=== PATIENT | female | born 1965 | race Caucasian/White ===

== ENCOUNTER 2018-02-05 10:51 | Inpatient (IN) | payer BC ==
[2018-02-05] MEDS: SOD CHLORIDE 0.9% 1,000 ML IV (11:34)
[2018-02-05] MEDS: ONDANSETRON 4 MG INJ IV ×2 (11:35→12:15)
[2018-02-05] MEDS: HYDROmorphONE 0.5 MG/0.5 ML SYG IV ×5 (11:35→23:55)
[2018-02-05 12:07] LABS: ADD MAN DIFF? NO
[2018-02-05 12:12] LABS: WHITE BLOOD COUNT 6.6 10^3/ul (4.8-10.8)
[2018-02-05 12:12] LABS: ABNORMAL IP MESSAGE 1; BASOPHILS % 0.3 % (0.0-2.0); EOSINOPHILS # 0.1 10^3/ul (0.0-0.5); EOSINOPHILS % 1.5 % (0.0-7.0); HEMATOCRIT 41.3 % (37.0-47.0); HEMOGLOBIN 14.3 g/dl (12.0-16.0); LYMPHOCYTES # 1.5 10^3/ul (0.8-2.9); LYMPHOCYTES % 23.3 % (15.0-51.0); MEAN CORPUSCULAR HEMOGLOBIN 30.1 pg (29.0-33.0); MEAN CORPUSCULAR HGB CONC 34.6 g/dl (32.0-37.0); MEAN CORPUSCULAR VOLUME 86.9 fl (82.0-101.0); MEAN PLATELET VOLUME 10.6 fl (7.4-10.4); MONOCYTE # 0.5 10^3/ul (0.3-0.9); MONOCYTES % 7.8 % (0.0-11.0); NEUTROPHIL # 4.4 10^3/ul (1.6-7.5); NEUTROPHILS % 66.8 % (39.0-77.0); PLATELET COUNT 65 10^3/UL (140-415); RED BLOOD COUNT 4.75 10^6/ul (4.20-5.40); RED CELL DISTRIBUTION WIDTH 14.3 % (11.5-14.5)
[2018-02-05 12:17] LABS: POSITIVE DIFF @See below
[2018-02-05 12:30] LABS: PROTIME 14.4 Sec (11.9-14.9); PT RATIO 1.1
[2018-02-05 12:37] LABS: ALANINE AMINOTRANSFERASE 87 IU/L (13-69); ALBUMIN 4.2 g/dl (3.3-4.9); ALBUMIN/GLOBULIN RATIO 1.35; ALKALINE PHOSPHATASE 87 IU/L (42-121); ANION GAP 16 (8-16); ASPARTATE AMINO TRANSFERASE 75 IU/L (15-46); BILIRUBIN,INDIRECT 0.4 mg/dl (0-1.1); BILIRUBIN,TOTAL 0.4 mg/dl (0.2-1.3); BLOOD UREA NITROGEN 9 mg/dl (7-20); CALCIUM 9.4 mg/dl (8.4-10.2); CARBON DIOXIDE 30 mmol/L (21-31); CHLORIDE 104 mmol/L (97-110); CREATININE 0.49 mg/dl (0.44-1.00); GLUCOSE 101 mg/dl (70-220); POTASSIUM 4.2 mmol/L (3.5-5.1); SODIUM 146 mmol/L (135-144); TOTAL PROTEIN 7.3 g/dl (6.1-8.1)
[2018-02-05] MEDS: predniSONE 20 MG TAB PO (13:30)
[2018-02-05] MEDS: DEXTROSE 5%-0.45% NACL 1,000 ML IV (17:20)
[2018-02-05] MEDS ORDERED: HYDROCODONE/APAP (5/325) TAB PO (17:30)
[2018-02-05] MEDS: MYCOPHENOLATE 250 MG CAP PO (21:00)
[2018-02-05] MEDS ORDERED: VITAMIN A & D 5 GM OINT PACKET TOP (21:45)
[2018-02-06] MEDS: HYDROmorphONE 0.5 MG/0.5 ML SYG IV ×4 (04:11→22:06)
[2018-02-06 05:37] LABS: ADD MAN DIFF? NO
[2018-02-06 05:40] LABS: RETICULOCYTE COUNT # 0.128 X10^6 (0.020-0.110); RETICULOCYTE COUNT % 2.9 % (0.5-1.5)
[2018-02-06 05:40] LABS: RETICULOCYTE RBC 4.37
[2018-02-06] MEDS: PANTOPRAZOLE 40 MG INJ IVPB (05:41)
[2018-02-06 05:42] LABS: ABNORMAL IP MESSAGE 1; BASOPHIL # 0.1 10^3/ul (0.0-0.1); BASOPHILS % 0.5 % (0.0-2.0); EOSINOPHILS # 0.2 10^3/ul (0.0-0.5); EOSINOPHILS % 1.2 % (0.0-7.0); HEMATOCRIT 38.6 % (37.0-47.0); HEMOGLOBIN 13.4 g/dl (12.0-16.0); LYMPHOCYTES # 3.7 10^3/ul (0.8-2.9); LYMPHOCYTES % 30.6 % (15.0-51.0); MEAN CORPUSCULAR HEMOGLOBIN 30.6 pg (29.0-33.0); MEAN CORPUSCULAR HGB CONC 34.7 g/dl (32.0-37.0); MEAN CORPUSCULAR VOLUME 88.1 fl (82.0-101.0); MEAN PLATELET VOLUME 10.4 fl (7.4-10.4); MONOCYTES % 8.6 % (0.0-11.0); NEUTROPHIL # 7.1 10^3/ul (1.6-7.5); NEUTROPHILS % 58.8 % (39.0-77.0); PLATELET COUNT 96 10^3/UL (140-415); RED BLOOD COUNT 4.38 10^6/ul (4.20-5.40); RED CELL DISTRIBUTION WIDTH 14.7 % (11.5-14.5)
[2018-02-06 05:42] LABS: WHITE BLOOD COUNT 12.1 10^3/ul (4.8-10.8)
[2018-02-06 05:43] LABS: POSITIVE DIFF @See below
[2018-02-06 06:01] LABS: ALANINE AMINOTRANSFERASE 81 IU/L (13-69); ALBUMIN 3.9 g/dl (3.3-4.9); ALBUMIN/GLOBULIN RATIO 1.39; ALKALINE PHOSPHATASE 82 IU/L (42-121); ANION GAP 15 (8-16); ASPARTATE AMINO TRANSFERASE 75 IU/L (15-46); BILIRUBIN,INDIRECT 0.8 mg/dl (0-1.1); BILIRUBIN,TOTAL 0.8 mg/dl (0.2-1.3); BLOOD UREA NITROGEN 10 mg/dl (7-20); CALCIUM 8.8 mg/dl (8.4-10.2); CARBON DIOXIDE 29 mmol/L (21-31); CHLORIDE 104 mmol/L (97-110); CREATININE 0.62 mg/dl (0.44-1.00); GLUCOSE 100 mg/dl (70-220); POTASSIUM 3.9 mmol/L (3.5-5.1); SODIUM 144 mmol/L (135-144); TOTAL PROTEIN 6.7 g/dl (6.1-8.1)
[2018-02-06 06:09] LABS: URIC ACID 5.4 mg/dl (3.1-7.9)
[2018-02-06 06:09] LABS: IRON 104 ug/dl (35-150)
[2018-02-06 06:18] LABS: % IRON SATURATION 26 % SAT (22-52); TOTAL IRON BINDING CAPACITY 400 ug/dl (241-421)
[2018-02-06] MEDS ORDERED: CEFAZOLIN 1 GM INJ (07:00)
[2018-02-06] MEDS ORDERED: ACETAMINOPHEN 1000 MG/100 ML IVPB (07:00)
[2018-02-06] MEDS ORDERED: ROCURONIUM 50 MG INJ (07:00)
[2018-02-06 08:10] LABS: ERYTHROCYTE SEDIMENTATION RATE 12 mm/Hr (0-30)
[2018-02-06] MEDS: ACETAMINOPHEN 325 MG TAB PO (08:11)
[2018-02-06] MEDS: MYCOPHENOLATE 250 MG CAP PO ×2 (09:00→21:05)
[2018-02-06] MEDS: predniSONE 5 MG TAB PO ×2 (09:00→19:33)
[2018-02-06] MEDS ORDERED: PROPOFOL 20 ML (12:31)
[2018-02-06] MEDS ORDERED: FENTAnyl 50 MCG/ML VIAL (12:32)
[2018-02-06] MEDS ORDERED: MIDAZOLAM 1 MG/ML 2 ML INJ (12:33)
[2018-02-06] MEDS: DEXTROSE 5%-0.45% NACL 1,000 ML IV (13:30)
[2018-02-06] MEDS ORDERED: LIDOCAINE 2% (SDV) 5 ML INJ (14:26)
[2018-02-06] MEDS ORDERED: ONDANSETRON 4 MG INJ (16:09)
[2018-02-06] MEDS ORDERED: SUCCINYLCHOLINE CHLORIDE 100 MG/5 ML SYG IV (16:09)
[2018-02-06] MEDS ORDERED: METOCLOPRAMIDE 10 MG INJ (16:10)
[2018-02-06] MEDS ORDERED: HYDROmorphONE 2 MG/ML SYG (16:33)
[2018-02-06] MEDS ORDERED: FENTAnyl 50 MCG/ML VIAL IV ×2 (17:00)
[2018-02-06] MEDS ORDERED: IPRATROPIUM (NEB) 0.5 MG/2.5 ML AMP HHN (17:00)
[2018-02-06] MEDS ORDERED: ONDANSETRON 4 MG INJ IV (17:00)
[2018-02-06] MEDS ORDERED: LABETALOL HCL 20MG INJ IV (17:00)
[2018-02-06] MEDS ORDERED: MEPERIDINE 25 MG INJ IV (17:00)
[2018-02-06] MEDS ORDERED: HYDROmorphONE (0.2 MG/ML) 10ML SYG IV ×3 (17:00)
[2018-02-06] MEDS ORDERED: METOCLOPRAMIDE 10 MG INJ IV (17:00)
[2018-02-06] MEDS ORDERED: hydrALAzine 20 MG INJ IV (17:00)
[2018-02-06] MEDS ORDERED: DIPHENHYDRAMINE 50 MG INJ IV (17:00)
[2018-02-06 17:59] LABS: HEMATOCRIT 36.2 % (37.0-47.0); HEMOGLOBIN 12.5 g/dl (12.0-16.0)
[2018-02-06] MEDS ORDERED: HYDROCODONE/APAP (5/325) TAB PO (18:00)
[2018-02-06] MEDS ORDERED: NACL 0.9% 3 ML SYG IV (18:00)
[2018-02-06] MEDS ORDERED: morphine 2 MG INJ IV (18:00)
[2018-02-06 18:28] LABS: ANION GAP 14 (8-16); BLOOD UREA NITROGEN 13 mg/dl (7-20); CALCIUM 8.4 mg/dl (8.4-10.2); CARBON DIOXIDE 28 mmol/L (21-31); CHLORIDE 103 mmol/L (97-110); CREATININE 0.74 mg/dl (0.44-1.00); GLUCOSE 98 mg/dl (70-220); POTASSIUM 4.1 mmol/L (3.5-5.1); SODIUM 141 mmol/L (135-144)
[2018-02-06] MEDS: DIPHENHYDRAMINE 50 MG INJ IV (19:34)
[2018-02-06] MEDS: D5W-0.45 NACL + KCL 20 MEQ 1,000 ML IV (19:34)
[2018-02-06] MEDS: CEFAZOLIN 1 GM/50 ML (PMX) 50 ML IVPB (19:34)
[2018-02-07] MEDS: ACETAMINOPHEN 325 MG TAB PO ×2 (01:34→16:08)
[2018-02-07] MEDS: HYDROmorphONE 0.5 MG/0.5 ML SYG IV ×6 (01:34→23:24)
[2018-02-07] MEDS: D5W-0.45 NACL + KCL 20 MEQ 1,000 ML IV ×4 (01:35→18:00)
[2018-02-07] MEDS: CEFAZOLIN 1 GM/50 ML (PMX) 50 ML IVPB ×2 (02:59→12:53)
[2018-02-07 05:17] LABS: ADD MAN DIFF? NO
[2018-02-07 05:24] LABS: ABNORMAL IP MESSAGE 1; BASOPHIL # 0.1 10^3/ul (0.0-0.1); BASOPHILS % 0.4 % (0.0-2.0); EOSINOPHILS # 0.2 10^3/ul (0.0-0.5); EOSINOPHILS % 1.6 % (0.0-7.0); HEMATOCRIT 30.9 % (37.0-47.0); HEMOGLOBIN 10.8 g/dl (12.0-16.0); LYMPHOCYTES # 3.8 10^3/ul (0.8-2.9); LYMPHOCYTES % 32.8 % (15.0-51.0); MEAN CORPUSCULAR HEMOGLOBIN 30.5 pg (29.0-33.0); MEAN CORPUSCULAR VOLUME 87.3 fl (82.0-101.0); MEAN PLATELET VOLUME 10.6 fl (7.4-10.4); MONOCYTES % 8.9 % (0.0-11.0); NEUTROPHIL # 6.5 10^3/ul (1.6-7.5); PLATELET COUNT 78 10^3/UL (140-415); RED BLOOD COUNT 3.54 10^6/ul (4.20-5.40); RED CELL DISTRIBUTION WIDTH 14.6 % (11.5-14.5)
[2018-02-07 05:24] LABS: WHITE BLOOD COUNT 11.6 10^3/ul (4.8-10.8)
[2018-02-07] MEDS: PANTOPRAZOLE 40 MG INJ IVPB (05:33)
[2018-02-07 05:46] LABS: ALANINE AMINOTRANSFERASE 76 IU/L (13-69); ALBUMIN 3.3 g/dl (3.3-4.9); ALBUMIN/GLOBULIN RATIO 1.17; ALKALINE PHOSPHATASE 65 IU/L (42-121); ANION GAP 14 (8-16); ASPARTATE AMINO TRANSFERASE 80 IU/L (15-46); BILIRUBIN,INDIRECT 0.7 mg/dl (0-1.1); BILIRUBIN,TOTAL 0.7 mg/dl (0.2-1.3); BLOOD UREA NITROGEN 10 mg/dl (7-20); CALCIUM 8.4 mg/dl (8.4-10.2); CARBON DIOXIDE 27 mmol/L (21-31); CHLORIDE 103 mmol/L (97-110); CREATININE 0.59 mg/dl (0.44-1.00); GLUCOSE 94 mg/dl (70-220); MAGNESIUM 1.6 mg/dl (1.7-2.5); SODIUM 140 mmol/L (135-144); TOTAL PROTEIN 6.1 g/dl (6.1-8.1)
[2018-02-07 05:52] LABS: POSITIVE DIFF @See below
[2018-02-07] MEDS: predniSONE 5 MG TAB PO (08:26)
[2018-02-07] MEDS: MYCOPHENOLATE 250 MG CAP PO ×2 (08:27→21:22)
[2018-02-07] MEDS: ENOXAPARIN 40 MG/0.4 ML SYG SC (08:29)
[2018-02-07] MEDS: MAGNESIUM SULFATE 2 GM/50 ML 50 ML IVPB (10:38)
[2018-02-08] MEDS: D5W-0.45 NACL + KCL 20 MEQ 1,000 ML IV ×4 (02:32→22:38)
[2018-02-08] MEDS: HYDROmorphONE 0.5 MG/0.5 ML SYG IV ×4 (03:42→20:28)
[2018-02-08 05:13] LABS: ADD MAN DIFF? NO
[2018-02-08 05:19] LABS: ABNORMAL IP MESSAGE 1; BASOPHILS % 0.4 % (0.0-2.0); EOSINOPHILS # 0.2 10^3/ul (0.0-0.5); HEMATOCRIT 26.8 % (37.0-47.0); HEMOGLOBIN 9.5 g/dl (12.0-16.0); LYMPHOCYTES # 3.5 10^3/ul (0.8-2.9); LYMPHOCYTES % 34.4 % (15.0-51.0); MEAN CORPUSCULAR HEMOGLOBIN 30.6 pg (29.0-33.0); MEAN CORPUSCULAR HGB CONC 35.4 g/dl (32.0-37.0); MEAN CORPUSCULAR VOLUME 86.5 fl (82.0-101.0); MEAN PLATELET VOLUME 10.8 fl (7.4-10.4); MONOCYTE # 1.2 10^3/ul (0.3-0.9); MONOCYTES % 11.3 % (0.0-11.0); NEUTROPHIL # 5.3 10^3/ul (1.6-7.5); NEUTROPHILS % 51.7 % (39.0-77.0); PLATELET COUNT 73 10^3/UL (140-415); RED CELL DISTRIBUTION WIDTH 14.6 % (11.5-14.5)
[2018-02-08 05:19] LABS: WHITE BLOOD COUNT 10.3 10^3/ul (4.8-10.8)
[2018-02-08 05:33] LABS: POSITIVE DIFF @See below
[2018-02-08 05:43] LABS: ALANINE AMINOTRANSFERASE 61 IU/L (13-69); ALBUMIN 3.1 g/dl (3.3-4.9); ALKALINE PHOSPHATASE 63 IU/L (42-121); ANION GAP 15 (8-16); ASPARTATE AMINO TRANSFERASE 66 IU/L (15-46); BILIRUBIN,INDIRECT 0.5 mg/dl (0-1.1); BILIRUBIN,TOTAL 0.5 mg/dl (0.2-1.3); BLOOD UREA NITROGEN 6 mg/dl (7-20); CARBON DIOXIDE 26 mmol/L (21-31); CHLORIDE 103 mmol/L (97-110); CREATININE 0.52 mg/dl (0.44-1.00); GLUCOSE 106 mg/dl (70-220); POTASSIUM 3.9 mmol/L (3.5-5.1); SODIUM 140 mmol/L (135-144); TOTAL PROTEIN 5.9 g/dl (6.1-8.1)
[2018-02-08] MEDS: PANTOPRAZOLE 40 MG INJ IVPB (06:26)
[2018-02-08] MEDS: ACETAMINOPHEN 325 MG TAB PO ×2 (07:48→22:38)
[2018-02-08] MEDS: DIPHENHYDRAMINE 50 MG INJ IV ×2 (07:48→22:38)
[2018-02-08] MEDS: predniSONE 5 MG TAB PO (09:11)
[2018-02-08] MEDS: MYCOPHENOLATE 250 MG CAP PO ×2 (09:11→21:40)
[2018-02-08] MEDS: MAGNESIUM SULFATE 2 GM/50 ML 50 ML IVPB (09:21)
[2018-02-08] MEDS: ENOXAPARIN 40 MG/0.4 ML SYG SC (09:21)
[2018-02-08 13:38] LABS: ANA SCREEN NEGATIVE (NEGATIVE)
[2018-02-08 16:50] LABS: ADD UMIC NO; UR ASCORBIC ACID NEGATIVE (NEGATIVE); UR BILIRUBIN (Dip) NEGATIVE (NEGATIVE); UR BLOOD (Dip) NEGATIVE (NEGATIVE); UR CLARITY CLEAR (CLEAR); UR COLOR YELLOW (YELLOW); UR GLUCOSE (Dip) NEGATIVE (NEGATIVE); UR KETONES (Dip) NEGATIVE (NEGATIVE); UR LEUKOCYTE ESTERASE (Dip) NEGATIVE Leu/ul (NEGATIVE); UR NITRITE (Dip) NEGATIVE (NEGATIVE); UR SPECIFIC GRAVITY (Dip) 1.004 (1.003-1.030); UR TOTAL PROTEIN (Dip) NEGATIVE (NEGATIVE); UR UROBILINOGEN (Dip) 2+ mg/dL (NEGATIVE)
[2018-02-08] MEDS: POLYETHYLENE GLYCOL 17 GM PACKET PO (23:30)
[2018-02-08] MEDS: DOCUSATE SODIUM 100 MG CAP PO (23:38)
[2018-02-09 05:12] LABS: ADD MAN DIFF? NO
[2018-02-09 05:39] LABS: ABNORMAL IP MESSAGE 1; BASOPHILS % 0.6 % (0.0-2.0); EOSINOPHILS # 0.2 10^3/ul (0.0-0.5); EOSINOPHILS % 3.1 % (0.0-7.0); HEMATOCRIT 24.8 % (37.0-47.0); HEMOGLOBIN 8.6 g/dl (12.0-16.0); LYMPHOCYTES # 2.7 10^3/ul (0.8-2.9); LYMPHOCYTES % 38.9 % (15.0-51.0); MEAN CORPUSCULAR HEMOGLOBIN 30.5 pg (29.0-33.0); MEAN CORPUSCULAR HGB CONC 34.7 g/dl (32.0-37.0); MEAN CORPUSCULAR VOLUME 87.9 fl (82.0-101.0); MEAN PLATELET VOLUME 10.7 fl (7.4-10.4); MONOCYTE # 0.7 10^3/ul (0.3-0.9); MONOCYTES % 9.8 % (0.0-11.0); NEUTROPHIL # 3.3 10^3/ul (1.6-7.5); NEUTROPHILS % 47.3 % (39.0-77.0); PLATELET COUNT 77 10^3/UL (140-415); RED BLOOD COUNT 2.82 10^6/ul (4.20-5.40); RED CELL DISTRIBUTION WIDTH 14.6 % (11.5-14.5)
[2018-02-09 05:54] LABS: POSITIVE DIFF @See below
[2018-02-09 06:00] LABS: ALANINE AMINOTRANSFERASE 51 IU/L (13-69); ALBUMIN 3.1 g/dl (3.3-4.9); ALKALINE PHOSPHATASE 56 IU/L (42-121); ANION GAP 15 (8-16); ASPARTATE AMINO TRANSFERASE 60 IU/L (15-46); BILIRUBIN,INDIRECT 0.6 mg/dl (0-1.1); BILIRUBIN,TOTAL 0.6 mg/dl (0.2-1.3); BLOOD UREA NITROGEN 5 mg/dl (7-20); CALCIUM 7.9 mg/dl (8.4-10.2); CARBON DIOXIDE 25 mmol/L (21-31); CHLORIDE 108 mmol/L (97-110); CREATININE 0.48 mg/dl (0.44-1.00); GLUCOSE 112 mg/dl (70-220); POTASSIUM 3.8 mmol/L (3.5-5.1); SODIUM 144 mmol/L (135-144); TOTAL PROTEIN 5.9 g/dl (6.1-8.1)
[2018-02-09] MEDS: PANTOPRAZOLE 40 MG INJ IVPB (06:16)
[2018-02-09] MEDS: D5W-0.45 NACL + KCL 20 MEQ 1,000 ML IV ×2 (06:16→17:05)
[2018-02-09] MEDS: HYDROmorphONE 0.5 MG/0.5 ML SYG IV ×3 (06:16→22:14)
[2018-02-09] MEDS: predniSONE 5 MG TAB PO (08:42)
[2018-02-09] MEDS: DOCUSATE SODIUM 100 MG CAP PO ×2 (08:42→20:42)
[2018-02-09] MEDS: MYCOPHENOLATE 250 MG CAP PO ×2 (08:42→20:42)
[2018-02-09] MEDS: POLYETHYLENE GLYCOL 17 GM PACKET PO ×2 (08:43→20:43)
[2018-02-09] MEDS: ENOXAPARIN 40 MG/0.4 ML SYG SC (08:46)
[2018-02-09] MEDS: LACTULOSE 30ML CUP PO ×2 (19:00→20:43)
[2018-02-09 19:18] LABS: HEMATOCRIT 26.6 % (37.0-47.0); HEMOGLOBIN 9.2 g/dl (12.0-16.0)
[2018-02-09] MEDS: MAGNESIUM SULFATE 2 GM/50 ML 50 ML IVPB (20:43)
[2018-02-10] MEDS: D5W-0.45 NACL + KCL 20 MEQ 1,000 ML IV ×3 (01:35→17:35)
[2018-02-10] MEDS: IBUPROFEN 600 MG TAB PO (04:15)
[2018-02-10 05:00] LABS: ADD MAN DIFF? NO
[2018-02-10 05:05] LABS: ABNORMAL IP MESSAGE 1; BASOPHILS % 0.3 % (0.0-2.0); EOSINOPHILS # 0.2 10^3/ul (0.0-0.5); EOSINOPHILS % 3.6 % (0.0-7.0); LYMPHOCYTES # 2.3 10^3/ul (0.8-2.9); LYMPHOCYTES % 36.6 % (15.0-51.0); MEAN CORPUSCULAR HEMOGLOBIN 30.7 pg (29.0-33.0); MEAN CORPUSCULAR HGB CONC 34.6 g/dl (32.0-37.0); MEAN CORPUSCULAR VOLUME 88.7 fl (82.0-101.0); MEAN PLATELET VOLUME 10.2 fl (7.4-10.4); MONOCYTE # 0.7 10^3/ul (0.3-0.9); NEUTROPHIL # 3.1 10^3/ul (1.6-7.5); NEUTROPHILS % 48.2 % (39.0-77.0); PLATELET COUNT 91 10^3/UL (140-415); RED BLOOD COUNT 2.93 10^6/ul (4.20-5.40); RED CELL DISTRIBUTION WIDTH 14.9 % (11.5-14.5)
[2018-02-10 05:05] LABS: WHITE BLOOD COUNT 6.4 10^3/ul (4.8-10.8)
[2018-02-10 05:06] LABS: POSITIVE DIFF @See below
[2018-02-10] MEDS: PANTOPRAZOLE 40 MG INJ IVPB (05:17)
[2018-02-10] MEDS: POLYETHYLENE GLYCOL 17 GM PACKET PO ×2 (09:00→21:00)
[2018-02-10] MEDS: predniSONE 5 MG TAB PO (09:26)
[2018-02-10] MEDS: MYCOPHENOLATE 250 MG CAP PO ×2 (09:26→21:37)
[2018-02-10] MEDS: DOCUSATE SODIUM 100 MG CAP PO ×2 (09:26→21:00)
[2018-02-10] MEDS: ENOXAPARIN 40 MG/0.4 ML SYG SC (09:34)
[2018-02-10] MEDS ORDERED: IMMUNE GLOBULIN (HUMAN) 6 GM INJ IV ×2 (15:30)
[2018-02-10] MEDS: IMMUN GLOB IV (18:39)
[2018-02-10] MEDS: WATER STERILE FOR IV (18:39)
[2018-02-10] MEDS: ACETAMINOPHEN 325 MG TAB PO (23:20)
[2018-02-10] MEDS: DIPHENHYDRAMINE 50 MG INJ IV (23:21)
[2018-02-11] MEDS: IBUPROFEN 600 MG TAB PO (00:13)
[2018-02-11] MEDS: D5W-0.45 NACL + KCL 20 MEQ 1,000 ML IV ×2 (01:35→09:35)
[2018-02-11 05:11] LABS: ADD MAN DIFF? NO
[2018-02-11 05:18] LABS: ABNORMAL IP MESSAGE 1; BASOPHILS % 0.3 % (0.0-2.0); EOSINOPHILS # 0.2 10^3/ul (0.0-0.5); EOSINOPHILS % 2.7 % (0.0-7.0); HEMATOCRIT 25.5 % (37.0-47.0); HEMOGLOBIN 8.8 g/dl (12.0-16.0); LYMPHOCYTES # 2.1 10^3/ul (0.8-2.9); LYMPHOCYTES % 31.9 % (15.0-51.0); MEAN CORPUSCULAR HEMOGLOBIN 30.6 pg (29.0-33.0); MEAN CORPUSCULAR HGB CONC 34.5 g/dl (32.0-37.0); MEAN CORPUSCULAR VOLUME 88.5 fl (82.0-101.0); MONOCYTE # 0.6 10^3/ul (0.3-0.9); MONOCYTES % 8.8 % (0.0-11.0); NEUTROPHIL # 3.7 10^3/ul (1.6-7.5); NEUTROPHILS % 55.9 % (39.0-77.0); PLATELET COUNT 99 10^3/UL (140-415); RED BLOOD COUNT 2.88 10^6/ul (4.20-5.40); RED CELL DISTRIBUTION WIDTH 15.1 % (11.5-14.5)
[2018-02-11 05:18] LABS: WHITE BLOOD COUNT 6.7 10^3/ul (4.8-10.8)
[2018-02-11 05:22] LABS: POSITIVE DIFF @See below
[2018-02-11] MEDS: PANTOPRAZOLE 40 MG INJ IVPB (06:00)
[2018-02-11 06:13] LABS: ANION GAP 16 (8-16); BLOOD UREA NITROGEN 9 mg/dl (7-20); CALCIUM 8.8 mg/dl (8.4-10.2); CARBON DIOXIDE 24 mmol/L (21-31); CHLORIDE 110 mmol/L (97-110); CREATININE 0.56 mg/dl (0.44-1.00); GLUCOSE 95 mg/dl (70-220); POTASSIUM 4.1 mmol/L (3.5-5.1); SODIUM 146 mmol/L (135-144)
[2018-02-11] MEDS: DOCUSATE SODIUM 100 MG CAP PO ×2 (08:50→20:37)
[2018-02-11] MEDS: predniSONE 5 MG TAB PO (08:50)
[2018-02-11] MEDS: POLYETHYLENE GLYCOL 17 GM PACKET PO ×2 (08:51→20:40)
[2018-02-11] MEDS: MYCOPHENOLATE 250 MG CAP PO ×2 (08:51→20:36)
[2018-02-11] MEDS: ENOXAPARIN 40 MG/0.4 ML SYG SC (08:55)
[2018-02-12] MEDS: IBUPROFEN 600 MG TAB PO (02:19)
[2018-02-12 05:52] LABS: ADD MAN DIFF? NO
[2018-02-12 06:03] LABS: BASOPHILS % 0.5 % (0.0-2.0); EOSINOPHILS # 0.2 10^3/ul (0.0-0.5); EOSINOPHILS % 2.9 % (0.0-7.0); HEMATOCRIT 25.9 % (37.0-47.0); HEMOGLOBIN 8.9 g/dl (12.0-16.0); LYMPHOCYTES # 2.2 10^3/ul (0.8-2.9); LYMPHOCYTES % 36.6 % (15.0-51.0); MEAN CORPUSCULAR HEMOGLOBIN 30.5 pg (29.0-33.0); MEAN CORPUSCULAR HGB CONC 34.4 g/dl (32.0-37.0); MEAN CORPUSCULAR VOLUME 88.7 fl (82.0-101.0); MEAN PLATELET VOLUME 9.9 fl (7.4-10.4); MONOCYTE # 0.5 10^3/ul (0.3-0.9); MONOCYTES % 7.5 % (0.0-11.0); NEUTROPHIL # 3.2 10^3/ul (1.6-7.5); NEUTROPHILS % 52.2 % (39.0-77.0); PLATELET COUNT 110 10^3/UL (140-415); RED BLOOD COUNT 2.92 10^6/ul (4.20-5.40); RED CELL DISTRIBUTION WIDTH 15.5 % (11.5-14.5)
[2018-02-12 06:03] LABS: WHITE BLOOD COUNT 6.1 10^3/ul (4.8-10.8)
[2018-02-12] MEDS: PANTOPRAZOLE 40 MG INJ IVPB (07:32)
[2018-02-12] MEDS: POLYETHYLENE GLYCOL 17 GM PACKET PO (09:00)
[2018-02-12] MEDS: ENOXAPARIN 40 MG/0.4 ML SYG SC (09:00)
[2018-02-12] MEDS: predniSONE 5 MG TAB PO (09:24)
[2018-02-12] MEDS: MYCOPHENOLATE 250 MG CAP PO (09:25)
[2018-02-12] MEDS: DOCUSATE SODIUM 100 MG CAP PO (09:25)
== END 2018-02-12 14:01 | disposition home or self-care (01) | DRG 481 ==
LOC: E/R 10:51 → MS1 13:23
PROC: 0QS606Z Reposition Right Upper Femur with Intramedullary Internal Fixation Device, Open Approach (ICD-10-PCS; principal; 2018-02-06 14:00)
DX: S72.141A Displaced intertrochanteric fracture of right femur, initial encounter for closed fracture (principal); G61.81 Chronic inflammatory demyelinating polyneuritis; E87.0 Hyperosmolality and hypernatremia; D69.6 Thrombocytopenia, unspecified; R71.0 Precipitous drop in hematocrit; S70.11XA Contusion of right thigh, initial encounter; K74.69 Other cirrhosis of liver; Z86.19 Personal history of other infectious and parasitic diseases; I10 Essential (primary) hypertension; E66.9 Obesity, unspecified; Z68.26 Body mass index [BMI] 26.0-26.9, adult; J44.9 Chronic obstructive pulmonary disease, unspecified; F17.200 Nicotine dependence, unspecified, uncomplicated; G47.33 Obstructive sleep apnea (adult) (pediatric); G62.9 Polyneuropathy, unspecified; Z90.710 Acquired absence of both cervix and uterus; E78.00 Pure hypercholesterolemia, unspecified; K59.00 Constipation, unspecified; W19.XXXA Unspecified fall, initial encounter; R06.83 Snoring
CPT/HCPCS: 71045; 72170; 73500; 73510; 73530; 73700; 74018; 80048; 80053; 81003; 82607; 82652; 82728; 82746; 83540; 83735; 84443; 84560; 85014; 85018; 85025; 85045; 85610; 85651; 85730; 86038; 86850; 86900; 86901; 86920; 87040; 87070; 93005; 93306; 93970; 96374; 96375; 96376; 97110; 97116; 97161; 97530; 99285-25

== ENCOUNTER 2019-03-26 11:50 | Emergency (ER) | payer BC ==
[2019-03-26] MEDS: IBUPROFEN 600 MG TAB PO (12:35)
== END 2019-03-26 12:39 | disposition home or self-care (01) ==
LOC: E/R 12:39
DX: R09.89 Other specified symptoms and signs involving the circulatory and respiratory systems (principal); J04.0 Acute laryngitis
CPT/HCPCS: 99282